=== PATIENT | male | born 2005 | race African-American/Black ===

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

== ENCOUNTER 2023-08-12 16:40 | Emergency (ER) | payer MEDICAID ==
[~2023-08-12] VITALS: Ht 177.8 cm; Wt 66.4 kg
[~2023-08-12 16:40] MED LIST changes: -ACET-1158 PO; +ACET500T58 PO; -AMOX-277 PO; +AMOX875T4 PO; -MECL12.514 PO; +MECL1TAB31 PO
[2023-08-13] MEDS ORDERED: HYDR-4924 PO (02:51)
[2023-08-13 03:16] VITALS: BP 127/86; PULSE 76; RESP 16; TEMP 98; O2SAT 97
== END 2023-08-13 03:16 | disposition home or self-care (01) ==
LOC: ER 16:40
DX: F43.10 Post-traumatic stress disorder, unspecified (principal); X58.XXXA Exposure to other specified factors, initial encounter; Y93.89 Activity, other specified; Y92.89 Other specified places as the place of occurrence of the external cause; Y99.8 Other external cause status

== ENCOUNTER 2025-06-17 14:23 | Emergency (ER) | payer MEDICAID ==
[~2025-06-17] VITALS: Ht 177.8 cm; Wt 55.0 kg
[~2025-06-17 14:23] MED LIST changes: +HYDR-4924 PO; +MECL12.586 PO; -MECL1TAB31 PO
[2025-06-17 14:55] VITALS: TEMP 98.2
[2025-06-17 15:21] LABS: Hematocrit 45.0 % (41.0-53.0); Hemoglobin 15.6 g/dL (13.5-17.5); Mean Corpuscular Hemoglobin 31.0 pg (28.0-32.0); Mean Corpuscular Volume 89.5 fL (80.0-100.0); Nucleated Red Blood Cells % 0.1 %
--- NOTE | 2025-06-17 15:26 | ED.PDOC ---
History of Present Illness HPI Comments 19-year-old male MIRI with chief complaint of syncopal episodes/N/V. Patient reports that he was taking a shower this morning when he had one syncopal episode for which patient has started to have abdominal pain and went to use the through the inner another syncopal episode. Patient is currently complaining of diffuse abdominal pain associated with nausea and vomiting at this time. Denies any other symptoms at this time. Denies chills, fever, /D, SOB, CP. No other associated symptoms, modifiers, recent injuries or sick contacts present at this time. Chief Complaint: Nausea/Vomiting Time Seen by MD: 15:20 Primary Care Provider: LARRY Jara Notes: Nurses Notes, Medications, Allergies Allergies: Coded Allergies: NO KNOWN ALLERGIES (Unverified , 12/15/21) Home Meds Active Scripts Hydroxyzine HCl (Hydroxyzine Hydrochloride) 25 Mg Tab, 25 MG PO BID for 30 Days, #60 TAB Prov:VIC RAYGOZA DO 08/13/23 Benzonatate (Tessalon Perles) 100 Mg Cap, 1 CAP PO TID PRN, #30 CAP 0 Refills Prov:HETAL WADDELL 12/12/21 Amoxicillin & Pot Clavulanate (Amoxicillin/Potassium Cla) 875 Mg Tab, 1 TAB PO BID for 7 Days, #14 TAB 0 Refills Prov:HETAL WADDELL 12/12/21 Acetaminophen (Acetaminophen) 500 Mg Tab, 500 MG PO QIDP, #30 TAB 0 Refills Prov:HETAL WADDELL 12/12/21 Meclizine Hcl (Meclizine Hcl) 12.5 Mg Tab, 2 TAB PO DAILY PRN, #14 TAB 0 Refills Prov:HETAL WADDELL 12/12/21 Information Source: Patient Severity: Moderate Timing: Hours Duration: Since onset, Hours Prehospital treatment: None Past Medical History PAST MEDICAL HISTORY: Denies Surgical History: Denies all surgeries Family History Family History: Reviewed,noncontributory to illness, Unknown Social History Smoker: Non-Smoker Alcohol: Denies ETOH Use Drugs: Marijuana Lives In: Home Constitutional: denies: chills, diaphoresis, fatigue, fever, malaise, sweats, weakness, others EENTM: denies: blurred vision, double vision, ear bleeding, ear discharge, ear drainage, ear pain, ear ringing, eye pain, eye redness, hearing loss, mouth pain, mouth swelling, nasal discharge, nose bleeding, nose congestion, nose pain, photophobia, tearing, throat pain, throat swelling, voice changes, others Respiratory: denies: cough, hemoptysis, orthopnea, SOB at rest, shortness of breath, SOB with excertion, stridor, wheezing, others Cardiovascular: reports: syncope; denies: chest pain, dizzy spells, diaphoresis, Dyspnea on exertion, edema, irregular heart beat, left arm pain, lightheadedness, palpitations, PND, others Gastrointestinal: reports: abdominal pain, nausea, vomiting; denies: abdomen distended, blood streaked bowels, constipated, diarrhea, dysphagia, difficulty swallowing, hematemesis, melena, poor appetite, poor fluid intake, rectal bleeding, rectal pain, others Genitourinary: denies: burning, dysuria, flank pain, frequency, hematuria, incontinence, penile discharge, penile sore, pain, testicle pain, testicle swelling, urgency, others Neurological: denies: dizziness, fainting, headache, left sided numbness, left sided weakness, numbness, paresthesia, pre-existing deficit, right sided numbness, right sided weakness, seizure, speech problems, tingling, tremors, weakness, others Musculoskeletal: denies: back pain, gout, joint pain, joint swelling, muscle pain, muscle stiffness, neck pain, others Integumetry: denies: bruises, change in color, change in hair/nails, dryness, laceration, lesions, lumps, rash, wounds, others Allergic/Immunocompromised: denies: Difficulty Healing, Frequent Infections, Hives, Itching, others Hematologic/Lymphatic: denies: anemia, blood clots, easy bleeding, easy bruising, swollen glands, others Endocrine: denies: excessive hunger, excessive sweating, excessive thirst, excessive urination, flushing, intolerance to cold, intolerance to heat, unexplained weight gain, unexplained weight loss, others Psychiatric: denies: anxiety, bipolar disorder, depression, hopeless, panic disorder, schizophrenia, sleepless, suicidal, others All Other Systems: Reviewed and Negative Physical Exam General Appearance: No Apparent Distress, Normal HEENT: Normal ENT Inspection, Pharynx Normal, TMs Normal Neck: Full Range of Motion, Non-Tender, Normal, Normal Inspection Respiratory: Chest Non-Tender, Lungs Clear, No Accessory Muscle Use, No Respiratory Distress, Normal Breath Sounds Cardiovascular: No Edema, No JVD, No Murmur, No Gallop, Normal Peripheral Pulses, Regular Rate/Rhythm Breast Exam: Deferred Gastrointestinal: No Organomegaly, Non Tender, No Pulsatile Mass, Normal Bowel Sounds, Soft Genitalia: Deferred Pelvic: Deferred Rectal: Deferred Extremities: No calf tenderness, Normal capillary refill, Normal inspection, Normal range of motion, Non-tender, No pedal edema Musculoskeletal : Apperance: Normal Neurologic: Alert, zoology professor II-XII nml as Tested, No Motor Deficits, Normal Affect, Normal Mood, No Sensory Deficits Cerebellar Function: Normal Reflexes: Normal Skin: Dry, Normal Color, Warm Lymphatic: No Adenopathy Was a procedure done? Was a procedure done?: No Differential Dx Considerations may include: Gastritis, small-bowel obstruction, gastroparesis X-Ray, Labs, Meds, VS Vital Signs Date Time Temp Pulse Resp B/P (MAP) Pulse Ox O2 Delivery O2 Flow Rate FiO2 06/17/25 16:48 62 18 126/52 (76) 98 06/17/25 16:48 62 18 126/52 06/17/25 15:44 52 22 95 Room Air* 0 21 06/17/25 15:44 52 22 119/74 (89) 98 06/17/25 14:55 98.2 48 18 120/77 98 98.2 Lab Test 06/17/25 15:04 Range/Units White Blood Count 12.2 H 4.4-10.8 10^3/uL Red Blood Count 5.03 4.5-5.90 10^6/uL Hemoglobin 15.6 13.5-17.5 g/dL Hematocrit 45.0 41.0-53.0 % Mean Corpuscular Volume 89.5 80.0-100.0 fL Mean Corpuscular Hemoglobin 31.0 28.0-32.0 pg Mean Corpuscular Hemoglobin Concent 34.6 32.0-36.0 g/dL Red Cell Distribution Width 13.0 11.8-14.3 % Platelet Count 295 140-450 10^3/uL Mean Platelet Volume 7.4 6.9-10.8 fL Neutrophils (%) (Auto) 92.0 H 37.0-80.0 % Lymphocytes (%) (Auto) 4.6 L 10.0-50.0 % Monocytes (%) (Auto) 3.0 0.0-12.0 % Eosinophils (%) (Auto) 0.0 0.0-7.0 % Basophils (%) (Auto) 0.4 0.0-2.0 % Neutrophils # (Auto) 11.2 H 1.6-8.6 10 ^3/uL Lymphocytes # (Auto) 0.6 0.4-5.4 10 ^3/uL Monocytes # (Auto) 0.4 0-1.3 10 ^3/uL Eosinophils # (Auto) 0 0-0.8 10 ^3/uL Basophils # (Auto) 0 0-0.2 10 ^3/uL Nucleated Red Blood Cells 0.1 % Sodium Level 145 136-145 mmol/L Potassium Level 3.6 3.5-5.1 mmol/L Chloride Level 109 H 98-107 mmol/L Carbon Dioxide Level 20 20-31 mmol/L Anion Gap 16 H 5-15 Blood Urea Nitrogen 10 9-23 mg/dL Creatinine 0.95 0.700-1.30 mg/dL Glomerular Filtration Rate Calc 117 >90 mL/min BUN/Creatinine Ratio 10.5 10.0-20.0 Serum Glucose 131 H 74-106 mg/dL Calcium Level 10.2 8.7-10.4 mg/dL Total Bilirubin 2.6 H 0.2-1.0 mg/dL Aspartate Amino Transferase (AST) 19 13-40 U/L Alanine Aminotransferase (ALT) 17 7-40 U/L Alkaline Phosphatase 87 46-116 U/L Total Protein 7.7 5.7-8.2 g/dL Albumin 4.9 H 3.2-4.8 g/dL Lipase 23 12-53 U/L Current Medications Medications (Trade) Dose Ordered Sig/Ajith Route Start Time Stop Time Status Last Admin Metoclopramide HCl (Reglan Injection) 5 mg ONCE ONCE IV 06/17/25 15:00 06/17/25 15:01 DC 06/17/25 15:53 Ketorolac Tromethamine (Toradol Injection) 30 mg ONCE ONCE IM 06/17/25 15:00 06/17/25 15:01 DC 06/17/25 15:52 Al Hydrox/Mg Hydrox/Simethicone (Maalox Plus) 30 ml ONCE ONCE PO 06/17/25 16:30 06/17/25 16:31 DC 06/17/25 16:41 Morphine Sulfate 4 mg ONCE ONCE IV 06/17/25 16:30 06/17/25 16:31 DC 06/17/25 16:48 Ondansetron HCl (Zofran) 4 mg ONCE ONCE IV 06/17/25 16:30 06/17/25 16:31 DC 06/17/25 16:41 X-Ray, Labs, Meds, VS Comment Patient eloped, seen taken out IV and walked out of the emergency department. Time of 1ST Reevaluation: 15:50 Reevaluation 1ST: Unchanged Patient Education/Counseling: Diagnosis, Treatment, Prognosis Family Education/Counseling: No Family Present SEPSIS Sepsis Screen Physician Orders Ct Ab Pel Wo Con-No Oral Or Iv (06/17/25 14:54) Urinalysis (06/17/25 14:54) Vital Signs Date Time Temp Pulse Resp B/P (MAP) Pulse Ox O2 Delivery O2 Flow Rate FiO2 06/17/25 16:48 62 18 126/52 (76) 98 06/17/25 16:48 62 18 126/52 06/17/25 15:44 52 22 95 Room Air* 0 21 06/17/25 15:44 52 22 119/74 (89) 98 06/17/25 14:55 98.2 48 18 120/77 98 98.2 Laboratory Tests Test 06/17/25 15:04 White Blood Count 12.2 10^3/uL (4.4-10.8) H Medications Medications Dose Ordered Sig/Ajith Route Start Time Stop Time Status Last Admin Dose Admin Al Hydrox/Mg Hydrox/Simethicone 30 ml ONCE ONCE PO 06/17/25 16:30 06/17/25 16:31 DC 06/17/25 16:41 Ketorolac Tromethamine 30 mg ONCE ONCE IM 06/17/25 15:00 06/17/25 15:01 DC 06/17/25 15:52 Metoclopramide HCl 5 mg ONCE ONCE IV 06/17/25 15:00 06/17/25 15:01 DC 06/17/25 15:53 Morphine Sulfate 4 mg ONCE ONCE IV 06/17/25 16:30 06/17/25 16:31 DC 06/17/25 16:48 Ondansetron HCl 4 mg ONCE ONCE IV 06/17/25 16:30 06/17/25 16:31 DC 06/17/25 16:41 Departure 1 Departure Time of Disposition: 21:08 Impression: Primary Impression: Syncope and collapse Additional Impression: Gastroenteritis Disposition: LEFT AWOL/ELOPED Condition: Other Critical Care Note Critical Care Time?: No Stability Stability form required: No Heart Score Heart Score: Heart Score Response (Comments) Value History N/A 0 EKG N/A 0 Age N/A 0 Risk Factors N/A 0 Troponin N/A 0 Total 0 I personally scribed for KORI RICK ([email or web address]) on 06/17/25 at 15:26. Electronically submitted by Marco Brooks ([email or web address]). KORI RICK Jun 17, 2025 15:26
[2025-06-17 15:44] VITALS: PULSE 52; RESP 22; O2SAT 95
[2025-06-17 15:44] LABS: Alanine Aminotransferase 17 U/L (7-40); Alkaline Phosphatase 87 U/L (46-116); Anion Gap 16 (5-15); Blood Urea Nitrogen 10 mg/dL (9-23); Calcium 10.2 mg/dL (8.7-10.4); Carbon Dioxide 20 mmol/L (20-31); Lipase 23 U/L (12-53); Potassium 3.6 mmol/L (3.5-5.1); Total Protein 7.7 g/dL (5.7-8.2)
[2025-06-17 15:45] LABS: Albumin 4.9 g/dL (3.2-4.8); BUN/Creatinine Ratio 10.5 (10.0-20.0); Bilirubin, Total 2.6 mg/dL (0.2-1.0); Chloride 109 mmol/L (98-107); Glucose 131 mg/dL (74-106); Sodium 145 mmol/L (136-145)
[2025-06-17] MEDS: KETOROLAC TROMETH 30 MG/ML 1ML VIAL IM ONE (15:52)
[2025-06-17] MEDS: METOCLOPRAMIDE HCL 5MG/ml INJ 2ml VIAL IV ONE (15:53)
--- NOTE | 2025-06-17 15:58 | DVH ---
Exam: CT CT AB PEL WO CON-NO ORAL OR IV History: abd pain Comparison Study: [facility] on DOS: 12/15/21, [facility] on DOS: 12/15/21 TECHNIQUE: Multidetector CT of the abdomen AND PELVIS without IV contrast. Axial, coronal and sagittal multiplanar reformats were obtained from the axial data set by the technologist. Radiation Dose Information: CT Dose: CTDI volume is 5.07 mGy. Dose-length product is 258.98 mGy*cm FINDINGS: Limited noncontrast imaging with motion artifact Lung bases are clear. Partially visualized heart is unremarkable. Mild hepatomegaly. Otherwise, liver, spleen, gallbladder, and adrenal glands unremarkable. Pancreas is unremarkable. Kidneys, ureters and urinary bladder unremarkable. Prostate is unremarkable. Stomach is unremarkable. Small bowel loops unremarkable. Appendix is not definitely visualized. Without visualization of the Appendix, can not exclude acute appendicitis. Limited evaluation of the large bowel. Moderate amount of fecal material and gas within the rectum and sigmoid with small to moderate amount of fecal material within the cecum. The remainder of the large bowel appears decompressed. No evidence of intraperitoneal free air or free fluid. No evidence of aortic aneurysm. No significant lymphadenopathy. Minimal body wall edema. Motion artifact limits evaluation of the bony structures for fracture. IMPRESSION: Limited noncontrast imaging with motion artifact. No evidence of acute abdominopelvic abnormalities. Appendix is not definitely visualized due to motion. Without visualization of the Appendix, can not exclude acute appendicitis.
[2025-06-17] MEDS: MAALOX PLUS or MAALOX 30 ML PO ONE (16:41)
[2025-06-17] MEDS: ONDANSETRON HCL 4 MG/2 ML VIAL IV ONE (16:41)
[2025-06-17 16:48] VITALS: BP 126/52; PULSE 62; RESP 18; O2SAT 98
[2025-06-17] MEDS: MORPHINE SULFATE 4 MG/ML SYR/VIAL IV ONE (16:48)
== END 2025-06-17 19:20 | disposition left against medical advice (07) ==
LOC: ER 14:23 → EDSEX 14:23 → EDBD 14:23 → ER 19:20
DX: R55 Syncope and collapse (principal); K52.9 Noninfective gastroenteritis and colitis, unspecified
CPT/HCPCS: 36415; 74176; 80053; 83690; 85025; 96372; 96374; 96375; 99285; J1885; J2270; J2405; J2765